=== PATIENT | female | born 1965 | race Caucasian/White ===

== ENCOUNTER 2016-09-26 10:46 | Emergency (ER) | payer BC ==
--- NOTE | 2016-10-06 00:45 | ER ---
ADMIT: 09/26/2016 RM/LOC: ER [facility] MR#: [id number] 2620 [facility] [address] [place] [phone] DEISI CANCINO [address] [place] [address] Emergency Room Report SEX: F AGE: 51 : 1965 DATE: 09/26/2016 HISTORY OF PRESENT ILLNESS: The patient is a 51-year-old, who presents to the emergency room complaining of a right knee pain with an effusion. She says, I got a Kidd's cyst and I would like to have it drained. This has been going on for 2 to 3 months. The knee, she says it has been hot, and she knows she has a Kidd's cyst. She has had it tapped by Dr. Ortega and she tried to go to his office, but was unable to get in. Apparently, no appointment was available. REVIEW OF SYSTEMS: Otherwise, negative. PAST MEDICAL HISTORY: She has a past medical history of: 1. Mixed connective tissue disease. 2. Rheumatoid arthritis. 3. Raynaud's. 4. Lupus. MEDICATIONS: See T-sheet. ALLERGIES: SEE T-SHEET. SOCIAL HISTORY: She is a smoker, half a pack a day, and she drinks alcohol rarely. PHYSICAL EXAMINATION: VITAL SIGNS: Upon examination, blood pressure 112/73, heart rate is 81, respirations 18, temp is 97, O2 sats 100%. GENERAL: She is mildly anxious on examination. EXTREMITIES: She does have right knee tenderness, soft tissue swelling. There is a joint effusion, and the knee is warm. There is no tenderness lateral or medial to the effusion. Her hip inspection is negative. SKIN: Warm and dry. LABORATORY AND DIAGNOSTIC DATA: X-ray of right knee shows an effusion. There is a radiolucency part in the lateral aspect, but she is not tender, so I do not believe it is a fracture. I discussed this at length with Dr. Dave, radiologist when he gave the report. ADMIT: 09/26/2016 RM/LOC: [facility] MR#: [id number] 26[address] [facility] [address] [place] [phone] DEISI CANCINO [address] [place] [address] Emergency Room Report SEX: F AGE: 51 : 1965 Her labs which I did is a CBC with a sedimentation rate and a CRP, shows a hemoglobin of 11.3, WBCs are normal, hematocrit is 34.8 with a CRP of 1.45. Her sedimentation rate is 31. X-ray as read by Dr. Dave, radiologist, lucency that requires a followup with an MRI. CLINICAL IMPRESSION: Right knee pain with some bursitis. The patient is discharged with a followup with Dr. Ortega. I myself contacted the office and left a message. She is going to try a Penicillin -VK 250 mg as she says the cephalexin itself does not do much, so will see if this helps any, but in all fairness she needs to have that knee tapped so she can have some relief. She will follow up with Dr. Ortega. AMY Sesay / Richard Osorio MD / skyl JOB #: [id number] CC: Richard Osorio MD, Attending Physician Jose Ortega MD, Family Physician
[2016-12-28] MEDS ORDERED: WELLBUTRIN SR150 M1 PO (17:28)
[2016-12-28] MEDS ORDERED: TRENTAL DPS400 MG PO (17:28)
[2016-12-28] MEDS ORDERED: PLAQUENIL DPS200 MG PO (17:29)
[2016-12-28] MEDS ORDERED: ULTRAM DPS50 MG PO (17:29)
[2016-12-28] MEDS ORDERED: NORVASC5 MG PO (17:29)
[2016-12-28] MEDS ORDERED: FLEXERIL-DPS10 MG PO (17:30)
[2016-12-28] MEDS ORDERED: THERA1 EACH PO (17:31)
[2016-12-28] MEDS ORDERED: MIRALAX PACKET17 GM PO (17:32)
[2016-12-28] MEDS ORDERED: TYLENOL DPS325 MG PO (17:33)
[2016-12-28] MEDS ORDERED: SENOKOT S1 TAB PO (17:33)
[2016-12-28] MEDS ORDERED: XARELTO10 MG PO (17:34)
[2016-12-28] MEDS ORDERED: PERCOCET 5 DPS1 TAB PO (17:35)
[2016-12-28] MEDS ORDERED: FERAHEME510 MG/17 IV (17:36)
== END 2016-09-26 13:50 | disposition home or self-care (01) ==
LOC: ER 10:46
DX: M70.51 Other bursitis of knee, right knee (principal)

== ENCOUNTER → 2016-12-07 | Outpatient (CLI) | payer BC ==
[~2016-12-07] MED LIST: FERAHEME510 MG/17 IV; FLEXERIL-DPS10 MG PO; MIRALAX PACKET17 GM PO; NORVASC5 MG PO; PERCOCET 5 DPS1 TAB PO; PLAQUENIL DPS200 MG PO; SENOKOT S1 TAB PO; THERA1 EACH PO; TRENTAL DPS400 MG PO; TYLENOL DPS325 MG PO; ULTRAM DPS50 MG PO; WELLBUTRIN SR150 M1 PO; XARELTO10 MG PO
== END | disposition home or self-care (01) ==
LOC: PTH.S 12-04 08:47
DX: Z01.818 Encounter for other preprocedural examination (principal); F17.200 Nicotine dependence, unspecified, uncomplicated; Z79.2 Long term (current) use of antibiotics

== ENCOUNTER → 2016-12-11 | Outpatient (CLI) | payer BC | END | disposition home or self-care (01) | LOC: RAD.S 16:18 | DX: M79.89 Other specified soft tissue disorders (principal); M79.662 Pain in left lower leg; R59.0 Localized enlarged lymph nodes ==

== ENCOUNTER 2016-12-24 08:13 | Inpatient (IN) | payer BC ==
[~2016-12-24] VITALS: Ht 167.6 cm; Wt 60.0 kg
--- NOTE | ~2016-12-24 | OR ---
ADMIT: 12/24/2016 RM/LOC: 508 [facility] MR#: [id number] [facility]#: [id number] 2620 [facility] [address] [place] [phone] DIESI CANCINO [address] [place] [address] Operative/Delivery Room Report SEX: F AGE: 51 : 1965 SURGERY DATE: 12/24/2016 SURGEON: Freida Barnes MD PREOPERATIVE DIAGNOSIS: Osteoarthritis, right knee. POSTOPERATIVE DIAGNOSIS: Osteoarthritis, right knee. PROCEDURE: Right total knee arthroplasty. ANESTHESIA: Spinal. TOURNIQUET TIME: 49 minutes. ESTIMATED BLOOD LOSS: 25 mL. COMPLICATIONS: None. SPECIMEN: Bone and synovium. ASSITANT: AMY Bobo. COMPONENTS: Elvis and Elvis Attune total knee system with a #4 posterior stabilized lugged femoral, #4 fixed bearing tibial, 5 mm tibial articular, and 35 mm patella. I used 80 g of [employer] SpeedSet bone cement without antibiotics. DESCRIPTION OF PROCEDURE: This patient was brought to the operating room. After satisfactory level of anesthesia was achieved, the right lower extremity was prepped and draped in the usual sterile fashion. Under tourniquet ischemia, a midline incision was made over the anterior aspect of the right knee. Dissection was carried through the subcutaneous tissue and skin flaps were made at the level of the joint capsule. A medial parapatellar incision was performed and conservable inflammatory joint effusion was aspirated from the knee. The patella was everted and the knee flexed. There was marked synovitis in the anterior compartments and areas of hypertrophic synovium were excised. Any bleeders then cauterized. Using an intramedullary alignment guide, I then made my distal femoral cut at 5 degrees in long axis of the femur. I then used the appropriate cutting blocks to prepare the distal femur for a #4 posterior stabilized lugged femoral component. It should be noted that the patient had a fair amount of osteoporosis, particularly of the medial femoral condyle. The external alignment guide was then used for the tibia and a #4 gave us the best coverage of the proximal tibia and a 5-mm tibial articular restored her extension. The patella was then prepared for a 35 mm patellar component and after confirming good range of motion and stability, all trial components were then removed. Our local for pain control was ADMIT: 12/24/2016 RM/LOC: 508 [facility] MR#: [id number] [address] [phone] DEISI CANCINO [address] [place] [address] Operative/Delivery Room Report SEX: F AGE: 51 : 1965 injected per protocol. Then after thorough irrigation of all bony surfaces, the prosthesis was cemented in position. A trial reduction performed. The knee was held in extension, irrigated with warm antibiotic solution as the cement hardened. I then flexed the knee, removed any extruded cement with an osteotome. Irrigated the knee and then released the tourniquet. Hemostasis was achieved using electrocautery. My final component was impacted on the tibial tray and the knee reduced. Once again, we had very good range of motion and stability, very good patellofemoral tracking and at this point, the joint was closed with interrupted #1 Vicryl in the capsule as well as running #2 Quill suture, 2-0 Vicryl in subcutaneous tissue, and rebel in the skin. A sterile dressing was applied. The patient was then transferred from the operative suite in stable condition. Freida Barnes MD/ shabnam JOB #: [id number] CC: Freida Barnes, Attending Physician Jose Ortega, Family Physician
--- NOTE | 2016-12-24 11:31 | HP ---
ADMIT: 12/24/2016 RM/LOC: [facility] MR#: [id number] 2620 [facility] [address] [place] [phone] DEISI CANCINO [address] [place] [address] Pre-OP History and Physical SEX: F AGE: 51 : 1965 DATE OF SERVICE: CHIEF COMPLAINT: Severe right knee patellofemoral arthritis. HISTORY OF PRESENT ILLNESS: This patient presents today. She has had a long history of conservative care for patellofemoral arthritis. She has had a number of surgeries in the past as well as a lateral retinacular release. She has ongoing pain with inability to ascend and descend stairs without significant discomfort and pain. She cannot sit in a chair for any period of time. Recently, she has had a chronic effusion and has been unable to improve despite aspiration and injection on numerous occasions. PAST MEDICAL HISTORY: She has history of Raynaud disease, mixed connective tissue disorder, as well as lupus. PAST SURGICAL HISTORY: Prior surgeries include knee arthroscopy, partial medial meniscectomy, and carpal tunnel surgery. MEDICATIONS: Include: 1. Flexeril. 2. Multivitamins. 3. Wellbutrin. 4. Tramadol. 5. Norvasc. 6. Naproxen. 7. Trental. 8. Plaquenil. ALLERGIES: NO KNOWN ALLERGIES TO MEDICINES. FAMILY HISTORY: Positive for diabetes and cancer. SOCIAL HISTORY: The patient lives in [place]. She is a smoker. REVIEW OF SYSTEMS: No complaints of any respiratory, cardiac, GI, or complaints. ADMIT: 12/24/2016 RM/LOC: [facility] MR#: [id number] 26[address] [facility] [address] [place] [phone] DEISI CANCINO [address] [place] [address] Pre-OP History and Physical SEX: F AGE: 51 : 1965 PHYSICAL EXAMINATION: This patient has marked patellofemoral crepitus. She has a very large effusion. She has a stable ligamentous exam, a mild varus deformity of the knee. RADIOGRAPHS: Her radiographs show predominantly patellofemoral arthritis with joint space narrowing, subchondral sclerosis, and marginal osteophytes. This is best viewed on the skyline view of the patella. IMPRESSION: Severe patellofemoral arthritis, right knee. RECOMMENDATIONS: Right total knee arthroplasty. The risks, benefits, alternatives, as well as potential complications were discussed. Freida Barnes MD/ shabnam JOB #: [id number] CC: Freida Barnes, Attending Physician Jose Ortega, Family Physician
[2016-12-28] MEDS ORDERED: TRENTAL DPS400 MG PO (17:28)
[2016-12-28] MEDS ORDERED: WELLBUTRIN SR150 M1 PO (17:28)
[2016-12-28] MEDS ORDERED: PLAQUENIL DPS200 MG PO (17:29)
[2016-12-28] MEDS ORDERED: NORVASC5 MG PO (17:29)
[2016-12-28] MEDS ORDERED: ULTRAM DPS50 MG PO (17:29)
[2016-12-28] MEDS ORDERED: FLEXERIL-DPS10 MG PO (17:30)
[2016-12-28] MEDS ORDERED: THERA1 EACH PO (17:31)
[2016-12-28] MEDS ORDERED: MIRALAX PACKET17 GM PO (17:32)
[2016-12-28] MEDS ORDERED: SENOKOT S1 TAB PO (17:33)
[2016-12-28] MEDS ORDERED: TYLENOL DPS325 MG PO (17:33)
[2016-12-28] MEDS ORDERED: XARELTO10 MG PO (17:34)
[2016-12-28] MEDS ORDERED: PERCOCET 5 DPS1 TAB PO (17:35)
[2016-12-28] MEDS ORDERED: FERAHEME510 MG/17 IV (17:36)
--- NOTE | 2017-01-14 11:55 | DS ---
ADMIT: 12/24/2016 RM/LOC: 508 [id number] [id number] 2620 [facility] [address] [place], [place] [phone] DEISI CANCINO [address] [place] [address] General Discharge Summary SEX: F AGE: 51 : 1965 ADMISSION DATE: 12/24/2016 DISCHARGE DATE: 12/27/2016 DATE OF SURGERY: 12/24/2016. REASON FOR ADMISSION: Elective right total knee arthroplasty. HISTORY OF PRESENT ILLNESS: A 51-year-old female, longstanding history of conservative care for patellofemoral degenerative joint disease. She had a number of surgeries in the past as well as lateral retinacular release. Ongoing instability to ascend and descend stairs without significant discomfort and pain. She cannot sit in a chair for any period of time without becoming symptomatic. Recently, she has had a chronic effusion, has been unable to improve despite aspiration and injection on numerous occasions, so she presented here today for an elective right total knee arthroplasty. PREOPERATIVE DIAGNOSIS: Right knee degenerative joint disease. POSTOPERATIVE DIAGNOSIS: Right knee degenerative joint disease. PROCEDURE PERFORMED: Right total knee arthroplasty. SURGEON: Freida Barnes MD BOWLING BALL GRADER AND MARKER: AMY Bobo COMPLICATIONS: None. ESTIMATED BLOOD LOSS: 25 mL. ANESTHESIA: Spinal. PAST MEDICAL HISTORY: 1. Lupus. 2. Raynaud disease. 3. Mixed connective tissue disorder. HOSPITAL COURSE: The patient was admitted on 12/24/2016, discharged on 12/27/2016, with a length of stay of 3 days. Discharge disposition home with self-care. While the patient was in the hospital, she experienced some increasing pain over the first few hours after surgery and first 1 to 2 days. After seeing this and hearing about this with the patient, pain management, medication was altered to try and relieve the patient's pain. Those efforts were successful by day 2 and 3, otherwise she really had no complications at all from the procedure. Vital signs stayed well within normal limits. Hemoglobin fell to a low of 7.5. Also while in the hospital. She attended occupational and physical therapy sessions. There are no questions from either services. Prior to discharge, the patient met with Social Work Services to discuss discharge disposition home with self-care was decided ADMIT: 12/24/2016 RM/LOC: 508 [facility] MR#: [id number] [address] [phone] DEISI CANCINO [address] [place] [address] General Discharge Summary SEX: F AGE: 51 : 1965 upon, and everyone is in agreement. Orthopedics saw the patient each day there in the hospital. Answered any questions and addressed any minor problems arose and gave the patient instructions prior to discharge. Overall, the patient handled the acute postoperative phase of the procedure very well. DISCHARGE MEDICATIONS: 1. Pentoxifylline ER 400 mg 1 to 3 times daily. 2. Amlodipine 5 mg daily. 3. Bupropion SR 150 mg daily. 4. Hydroxychloroquine 200 mg b.i.d. by mouth. 5. Tramadol 50 mg 1 to 2 tabs every 4 to 6 hours p.r.n. 6. Cyclobenzaprine 10 mg 1 to 2 tabs as needed. 7. MiraLAX 17 g p.o. daily. 8. Senokot 1 tab 2 tabs daily. 9. Xarelto 10 mg daily. DISCHARGE DIAGNOSIS: Right knee degenerative joint disease, status post right total knee arthroplasty. DISCHARGE INSTRUCTIONS: The patient is going to follow up Orthopedics in 2 weeks following date of surgery. Follow up with their primary care provider as needed. Start outpatient physical therapy. Once they get things and appointments set up based on their time and schedule and they ordered knee immobilizer and TOM hose first 4 to 6 weeks. They were asked to contact Orthopedic Clinic or office if there are any questions or concerns prior to the first followup appointment. AMY Merchant / Freida Barnes MD / shabnam JOB #: [id number] CC: Freida Barnes MD, Attending Physician Jose Ortega MD, Family Physician
== END 2016-12-27 12:30 | disposition home or self-care (01) | DRG 470 ==
LOC: 5MS 10:46 → WOR 10:46 → 5MS 15:59
PROVIDERS: ADMIT Orthopaedic Surgery
PROC: 0SRC0J9 Replacement of Right Knee Joint with Synthetic Substitute, Cemented, Open Approach (ICD-10-PCS; principal; 2016-12-24)
DX: M17.11 Unilateral primary osteoarthritis, right knee (principal); M32.9 Systemic lupus erythematosus, unspecified; D68.2 Hereditary deficiency of other clotting factors; D62 Acute posthemorrhagic anemia; M35.1 Other overlap syndromes; I73.00 Raynaud's syndrome without gangrene; D63.8 Anemia in other chronic diseases classified elsewhere; F17.210 Nicotine dependence, cigarettes, uncomplicated; Z79.899 Other long term (current) drug therapy; Z82.49 Family history of ischemic heart disease and other diseases of the circulatory system